=== PATIENT | female | born 1980 | race Two or more races ===

== ENCOUNTER 2021-10-19 14:26 | Emergency (ER) | payer MEDICAID ==
[~2021-10-19] VITALS: Ht 160 cm; Wt 73.0 kg
[2021-10-19 14:43] VITALS: BP 123/80
[2021-10-19 15:26] LABS: Basophils # (auto) 0 10 ^3/uL (0-0.2); Eosinophils # (auto) 0 10 ^3/uL (0-0.8); Hematocrit 38.5 % (36.0-46.0); White Blood Cell 4.8 10^3/uL (4.4-10.8)
[2021-10-19 15:28] LABS: Basophils % (auto) 0.6 % (0.0-2.0); Eosinophils % (auto) 0.9 % (0.0-7.0); Hemoglobin 12.9 g/dL (12.2-16.2); Lymphocytes % (auto) 20.4 % (10.0-50.0); Mean Corpuscular Hemoglobin 24.3 pg (28.0-32.0); Mean Corpuscular Hgb Conc. 33.4 g/dL (32.0-36.0); Mean Corpuscular Volume 72.6 fL (80.0-100.0); Monocytes # (auto) 0.4 10 ^3/uL (0-1.3); Monocytes % (auto) 8.9 % (0.0-12.0); Neutrophils # (auto) 3.3 10 ^3/uL (1.6-8.6); Neutrophils % (auto) 69.2 % (37.0-80.0); Nucleated Red Blood Cells % 0.4 %; Red Cell Distribution Width 16.9 % (11.8-14.3)
[2021-10-19 15:34] LABS: Urine Bacteria NONE SEEN /hpf (None Seen); Urine Blood 1+ /uL (Negative); Urine Mucus FEW (None Seen); Urine Specific Gravity 1.024 (1.001-1.035); Urine WBC 1 /hpf (0 - 5)
[2021-10-19 15:40] LABS: Albumin 3.5 g/dL (3.4-5.0); BUN/Creatinine Ratio 14.5; Calcium 8.2 mg/dL (8.5-10.1); Potassium 3.8 mmol/L (3.5-5.1)
[2021-10-19 15:42] LABS: Bilirubin, Total 0.6 mg/dL (0.2-1.0)
[2021-10-19 16:22] LABS: Amylase 37 U/L (25-115); Lipase 63 U/L (73-393)
[2021-10-19] MEDS ORDERED: ONDANSETRON ODT 4 MG TAB PO ONE (16:30)
[2021-10-19] MEDS ORDERED: MORPHINE SULFATE 4 MG/ML SYR/VIAL IV ONE (17:30)
[2021-10-19] MEDS ORDERED: PANTOPRAZOLE 40 MG/10 ML VIAL INJ IV ONE (17:30)
[2021-10-19] MEDS ORDERED: ONDANSETRON HCL 4 MG/2 ML VIAL IV ONE (17:30)
== END 2021-10-19 22:22 | disposition home or self-care (01) ==
LOC: ER 14:26
DX: K80.20 Calculus of gallbladder without cholecystitis without obstruction (principal); F17.210 Nicotine dependence, cigarettes, uncomplicated
CPT/HCPCS: 36415; 76705; 80053; 81001; 82150; 83690; 84702; 85025

== ENCOUNTER 2022-12-20 12:18 | Emergency (ER) | payer MEDICAID ==
[~2022-12-20] VITALS: Ht 152.4 cm; Wt 76.9 kg
[2022-12-20 14:40] VITALS: BP 128/78; PULSE 70; RESP 16; TEMP 98.1; O2SAT 95
== END 2022-12-20 15:10 | disposition home or self-care (01) ==
LOC: ER 12:18
DX: S86.812A Strain of other muscle(s) and tendon(s) at lower leg level, left leg, initial encounter (principal); F17.210 Nicotine dependence, cigarettes, uncomplicated; Z98.890 Other specified postprocedural states; V89.9XXA Person injured in unspecified vehicle accident, initial encounter; Y93.89 Activity, other specified; Y92.89 Other specified places as the place of occurrence of the external cause; Y99.8 Other external cause status
CPT/HCPCS: 93971